=== PATIENT | female | born 1985 | race Two or more races ===

== ENCOUNTER 2019-11-12 11:46 | Emergency (ER) | payer SELFPAY ==
[~2019-11-12] VITALS: Ht 160 cm; Wt 88.0 kg
[2019-11-12] MEDS ORDERED: ALBUTEROL SULF 2.5 MG/0.5ML(0.5%) NEB SOLN NEB ONE (12:45)
[2019-11-12] MEDS ORDERED: IPRATROPIUM BROM 0.5 MG/2.5ML INH SOL NEB ONE (12:45)
[2019-11-12 12:47] VITALS: BP 142/86
[2019-11-12] MEDS ORDERED: methylPREDNISolone SOD SUCC 125 MG/2 ML VL IM ONE (13:00)
[2019-11-12] MEDS ORDERED: EPINEPHrine HCL 1 MG/1 ML AMP SC ONE (13:00)
== END 2019-11-12 13:47 | disposition home or self-care (01) ==
LOC: ER 11:46
DX: T78.40XA Allergy, unspecified, initial encounter (principal); J98.01 Acute bronchospasm
CPT/HCPCS: 71046; 94640; 96372; 99284; J0171; J2930; J7644